=== PATIENT | female | born 1935 | race Caucasian/White ===

== ENCOUNTER 2020-10-05 06:21 | Inpatient (IN) | payer MEDICARE, MEDICAID, SELFPAY ==
[2020-10-05] VITALS (9 sets, daily range): BP systolic 93–137; BP diastolic 40–55; PULSE 60–104; RESP 15–20; TEMP 37.3–39.8; O2SAT 95–99; BMI 28.3
--- NOTE | ~2020-10-05 | CT_ITS ---
EXAMINATION: CT CHEST WITHOUT CONTRAST CLINICAL INFORMATION: SOB. Covid positive. COMPARISON: Chest 10/05/2020 TECHNIQUE: Multidetector volumetric CT imaging of the chest was done. Axial MIP volume rendering provided. Sagittal and coronal reformatted images were obtained. This CT examination was performed using dose optimization techniques as appropriate, variously including the following: *Automated exposure control *Adjustment of mA and/or kV according to patient size (this includes techniques or standardized protocols for targeted exams where dose is matched to indication/reason for exam; i.e. extremities or head) *Use of iterative reconstruction technique DLP: 232 mGy-cm FINDINGS: AWARD MACHINE OPERATOR: Unremarkable. LUNGS: The lungs are well expanded with patchy ill-defined opacity in the right middle lobe anterior segment and right lower lobe adjacent to the major fissure, axial image 26/4; a 5 mm nodule left lower lobe adjacent to the major fissure axial image 23/4; a 5 mm pleural-based nodule right upper lobe, axial image 12/4, and a pleural-based triangular nodule 9 mm, axial image 12/4. There is bilateral apical atelectasis or scarring. MEDIASTINUM: The thyroid lobes are symmetrical and normal. The central trachea and the bronchi are widely patent. There are numerous abnormal size para-aortic and precarinal pretracheal lymph nodes. The largest right pretracheal lymph node measures 1.9 x 1.2 cm on axial image 11/3. PLEURA: There is no pleural effusion. No pleural mass or thickening. AXILLA: There are small shotty lymph nodes in the axilla. The chest wall is unremarkable. UPPER ABDOMEN: Visualized liver, spleen, pancreas and bilateral adrenal glands are unremarkable. OSSEOUS STRUCTURES: There is moderate ventral spondylosis throughout the dorsal spine. There are median sternotomy sutures from previous intervention. CT/CT chest wo con IMPRESSION: Patchy ill-defined opacity, right middle lobe and left lower lobe, question infiltrate. Bilateral upper lobe platelike atelectasis or scarring There are scattered pulmonary nodules with the largest nodule measuring 5 mm lower lobe. Abnormal mediastinal adenopathy likely related to inflammatory or infectious etiology.
--- NOTE | ~2020-10-05 | XR_ITS ---
EXAMINATION: XR CHEST CLINICAL INFORMATION: Cough. COMPARISON: 01/01/2020 chest radiograph. TECHNIQUE: Frontal view of the chest was obtained. FINDINGS: The lungs are clear. The heart shows a prosthetic aortic valve. The mediastinal structures are unremarkable. Multilevel sternotomy wires are intact. XR/XR chest 1V IMPRESSION: No acute cardiopulmonary process.
--- NOTE | 2020-10-05 06:48 | ECG_ITS ---
Test Reason : WEAKNESS Blood Pressure : / mmHG Vent. Rate : 100 BPM Atrial Rate : 100 BPM P-R Int : 146 ms QRS Dur : 076 ms QT Int : 330 ms P-R-T Axes : 047 -25 117 degrees QTc Int : 425 ms Normal sinus rhythm Left ventricular hypertrophy with repolarization abnormality Abnormal ECG When compared with ECG of 01-JAN-2020 11:30, No significant change was found Referred By: Generic ED Physician Electronically Signed By:FATMATA FAULKNER
[2020-10-05 06:58] LABS: Glucose, Whole Blood 278 mg/dL (60-115)
[2020-10-05 06:59] LABS: MANUAL DIFF FLAG NO
--- NOTE | 2020-10-05 06:59 | PC.NURSE ---
Family contact [phone] for further information regarding history and CC/
--- NOTE | 2020-10-05 07:08 | ED.FEVER ---
HPI - Fever General Chief Complaint: Fever Stated Complaint: FEVER Time Seen by Provider: 10/05/20 06:54 Source: family History of Present Illness HPI Narrative: Patient is the 84-year-old female with a history of diabetes who presents today with having decreased mental status positive fever. No coughing or congestion. No diaphoresis. Patient from home. She is unable to provide the toe history. Family claims patient baseline awake alert oriented good now getting more lethargic developing a fever. Related Data Allergies Allergy/AdvReac Type Severity Reaction Status Date / Time metformin [METFORMIN] Allergy Intermediate DIARRHEA Unverified 05/17/20 18:46 Review of Systems Review of Systems: Unable to obtain review systems secondary to patient's condition Yes Unobtainable due to mental condition PMF Past Medical History Attestation statement: The following information was validated with the patient. Source: old records reviewed Medical History Diabetes Heart problem Hypertension Social History Social History Alcohol intake: unknown Smoking Status: Unknown if ever smoked Use of substances other than those prescribed or required for medical reasons: Unknown Advance Directives: No Physical Exam Vital Signs: Vital Signs: Last Vital Signs Temp 103.7 F H 10/05/20 06:36 Pulse 86 10/05/20 09:01 Resp 16 10/05/20 09:01 BP 112/52 L 10/05/20 09:01 Pulse Ox 98 10/05/20 09:01 Body Mass Index 28.3 Appearance: Alert. Oriented to self. No acute distress. Eyes: Pupils equal, round and reactive to light. ENT: Pharynx normal. Neck: Normal inspection. Neck supple. No lymph nodes noted. No crepitus CVS: Normal heart rate and rhythm. Pulses normal. Normal S1 and S2 Respiratory: No respiratory distress. Breath sounds normal. No Wheezing. No rales Abdomen: Soft and nontender. No rigidity. No distention. good BS x4 Skin: Skin warm and dry. Normal skin color. Normal skin turgor. Extremities: No lower extremity edema. Neurovascular intact to all extremities. No Lacerations. No Rash Neuro: Oriented to self. No motor deficit. No sensory deficit. Moving all extermities. No slurred speech MDM - Fever MDM Narrative Medical decision making narrative: Patient's urine was grossly negative for any acute evidence of infection. White count was 18. BUN and creatinine elevated suggestive of dehydration. Given IV fluids. Patient's lactate elevated at 2.5. Likely from dehydration. Patient coronavirus test was also positive. Likely the source of patient's fever. Will admit patient for further hydration. Cultures were obtained antibiotic was given initially as patient had an elevated lactate. Chest x-ray is negative for any acute infiltrate. Patient to be admitted for further evaluation. IV fluids given. Patient to be admitted. Lab Data Attestation: I reviewed the patient's lab results. Result diagrams: 10/05/20 06:50 10/05/20 06:50 Labs: Lab Results 10/05/20 10/05/20 10/05/20 Range/Units 06:50 06:50 06:50 WBC 18.1 H (4.8-10.8) X10*3/uL RBC 4.33 (4.20-5.50) X10*6/uL Hgb 12.2 (12.0-16.0) g/dl Hct 35.8 L (37-47) % MCV 82.7 (80-98) fL MCH 28.2 (27.0-33.0) pg MCHC 34.1 (31.0-35.0) g/dl RDW 13.5 (11.0-16.0) % Plt Count 163 (160-400) X10*3/uL MPV 11.6 (9.4-12.3) fL Immature Gran % (Auto) 1.3 H (0.0-0.4) % Neut % (Auto) 84.8 H (45-73) % Lymph % (Auto) 6.6 L (20-40) % [place] % (Auto) 6.9 (2-11) % Eos % (Auto) 0.1 (0-4) % Baso % (Auto) 0.3 (0-2) % Lymph # (Auto) 1.2 (1.2-4.9) X10*3/uL [place] # (Auto) 1.3 H (0.1-1.2) X10*3/uL Eos # (Auto) 0.0 (0.0-0.4) X10*3/uL Baso # (Auto) 0.1 (0.0-0.2) X10*3/uL Abs Immat Gran (auto) 0.23 H (0.00-0.03) X10*3/uL Absolute Neuts (auto) 15.4 H (2.0-8.3) X10*3/uL Absolute Nucleated RBC 0.000 (0.0-0.012) X10*3/uL Nucleated RBC % (auto) 0.0 (0.0-0.2) /100WBC Hold Blue Top SEE NOTE Sodium (135-145) mmol/L Potassium (3.3-5.1) mmol/L Chloride (96-108) mmol/L Carbon Dioxide (22-29) mmol/L Anion Gap (12-20) BUN (9-16) mg/dL Creatinine (0.5-1.4) mg/dL Estim Creat Clear Calc Estimated GFR POC Glucose (60-115) mg/dL Random Glucose (60-115) mg/dL Lactic Acid 2.5 H* (0.5-2.0) mmol/L Calcium (8.4-10.2) mg/dL Urine Color Urine Appearance Urine pH (5.0-8.0) Ur Specific [place] (1.005-1.025) Urine Protein (NEG-TRACE) MG/DL Urine Glucose (UA) (NEG) MG/DL Urine Ketones (NEG) MG/DL Urine Blood (NEG) Urine Nitrite (NEG) Ur Leukocyte Esterase (NEG) Urine RBC (0) /HPF Urine WBC (0-4) /HPF Ur Squamous Epith Cells /LPF Uric Acid Crystals /LPF Urine Bacteria /LPF Urine Yeast /HPF Urine Opiates Screen (Not Detect) Ur Barbiturates Screen (Not Detect) Ur Phencyclidine Scrn (Not Detect) Ur Amphetamines Screen (Not Detect) U Benzodiazepines Scrn (Not Detect) Urine Cocaine Screen (Not Detect) U Marijuana (THC) Screen (Not Detect) Coronavirus (PCR) (Negative) Influenza Type A (PCR) (Negative) Influenza Type B (PCR) (Negative) RSV RNA Qual (PCR) (Negative) 10/05/20 10/05/20 10/05/20 Range/Units 06:50 06:53 07:08 WBC (4.8-10.8) X10*3/uL RBC (4.20-5.50) X10*6/uL Hgb (12.0-16.0) g/dl Hct (37-47) % MCV (80-98) fL MCH (27.0-33.0) pg MCHC (31.0-35.0) g/dl RDW (11.0-16.0) % Plt Count (160-400) X10*3/uL MPV (9.4-12.3) fL Immature Gran % (Auto) (0.0-0.4) % Neut % (Auto) (45-73) % Lymph % (Auto) (20-40) % [place] % (Auto) (2-11) % Eos % (Auto) (0-4) % Baso % (Auto) (0-2) % Lymph # (Auto) (1.2-4.9) X10*3/uL [place] # (Auto) (0.1-1.2) X10*3/uL Eos # (Auto) (0.0-0.4) X10*3/uL Baso # (Auto) (0.0-0.2) X10*3/uL Abs Immat Gran (auto) (0.00-0.03) X10*3/uL Absolute Neuts (auto) (2.0-8.3) X10*3/uL Absolute Nucleated RBC (0.0-0.012) X10*3/uL Nucleated RBC % (auto) (0.0-0.2) /100WBC Hold Blue Top Sodium 135 (135-145) mmol/L Potassium 4.2 (3.3-5.1) mmol/L Chloride 96 (96-108) mmol/L Carbon Dioxide 28 (22-29) mmol/L Anion Gap 15 (12-20) BUN 29 H (9-16) mg/dL Creatinine 1.75 H (0.5-1.4) mg/dL Estim Creat Clear Calc 20.1 Estimated GFR 28 POC Glucose 278 H (60-115) mg/dL Random Glucose 326 H (60-115) mg/dL Lactic Acid (0.5-2.0) mmol/L Calcium 9.3 (8.4-10.2) mg/dL Urine Color Urine Appearance Urine pH (5.0-8.0) Ur Specific [place] (1.005-1.025) Urine Protein (NEG-TRACE) MG/DL Urine Glucose (UA) (NEG) MG/DL Urine Ketones (NEG) MG/DL Urine Blood (NEG) Urine Nitrite (NEG) Ur Leukocyte Esterase (NEG) Urine RBC (0) /HPF Urine WBC (0-4) /HPF Ur Squamous Epith Cells /LPF Uric Acid Crystals /LPF Urine Bacteria /LPF Urine Yeast /HPF Urine Opiates Screen (Not Detect) Ur Barbiturates Screen (Not Detect) Ur Phencyclidine Scrn (Not Detect) Ur Amphetamines Screen (Not Detect) U Benzodiazepines Scrn (Not Detect) Urine Cocaine Screen (Not Detect) U Marijuana (THC) Screen (Not Detect) Coronavirus (PCR) POSITIVE A (Negative) Influenza Type A (PCR) NEGATIVE (Negative) Influenza Type B (PCR) NEGATIVE (Negative) RSV RNA Qual (PCR) NEGATIVE (Negative) 10/05/20 10/05/20 Range/Units 07:40 07:40 WBC (4.8-10.8) X10*3/uL RBC (4.20-5.50) X10*6/uL Hgb (12.0-16.0) g/dl Hct (37-47) % MCV (80-98) fL MCH (27.0-33.0) pg MCHC (31.0-35.0) g/dl RDW (11.0-16.0) % Plt Count (160-400) X10*3/uL MPV (9.4-12.3) fL Immature Gran % (Auto) (0.0-0.4) % Neut % (Auto) (45-73) % Lymph % (Auto) (20-40) % [place] % (Auto) (2-11) % Eos % (Auto) (0-4) % Baso % (Auto) (0-2) % Lymph # (Auto) (1.2-4.9) X10*3/uL [place] # (Auto) (0.1-1.2) X10*3/uL Eos # (Auto) (0.0-0.4) X10*3/uL Baso # (Auto) (0.0-0.2) X10*3/uL Abs Immat Gran (auto) (0.00-0.03) X10*3/uL Absolute Neuts (auto) (2.0-8.3) X10*3/uL Absolute Nucleated RBC (0.0-0.012) X10*3/uL Nucleated RBC % (auto) (0.0-0.2) /100WBC Hold Blue Top Sodium (135-145) mmol/L Potassium (3.3-5.1) mmol/L Chloride (96-108) mmol/L Carbon Dioxide (22-29) mmol/L Anion Gap (12-20) BUN (9-16) mg/dL Creatinine (0.5-1.4) mg/dL Estim Creat Clear Calc Estimated GFR POC Glucose (60-115) mg/dL Random Glucose (60-115) mg/dL Lactic Acid (0.5-2.0) mmol/L Calcium (8.4-10.2) mg/dL Urine Color STRAW Urine Appearance CLEAR Urine pH 6.0 (5.0-8.0) Ur Specific [place] 1.015 (1.005-1.025) Urine Protein 1+ H (NEG-TRACE) MG/DL Urine Glucose (UA) >=1000 H (NEG) MG/DL Urine Ketones NEG (NEG) MG/DL Urine Blood 1+ H (NEG) Urine Nitrite NEG (NEG) Ur Leukocyte Esterase NEG (NEG) Urine RBC 0-2 (0) /HPF Urine WBC 1-4 (0-4) /HPF Ur Squamous Epith Cells TRACE /LPF Uric Acid Crystals TRACE /LPF Urine Bacteria 3+ /LPF Urine Yeast TRACE /HPF Urine Opiates Screen Not Detected (Not Detect) Ur Barbiturates Screen Not Detected (Not Detect) Ur Phencyclidine Scrn Not Detected (Not Detect) Ur Amphetamines Screen Not Detected (Not Detect) U Benzodiazepines Scrn Not Detected (Not Detect) Urine Cocaine Screen Not Detected (Not Detect) U Marijuana (THC) Screen Not Detected (Not Detect) Coronavirus (PCR) (Negative) Influenza Type A (PCR) (Negative) Influenza Type B (PCR) (Negative) RSV RNA Qual (PCR) (Negative) Critical Care Time Critical Care Time Critical Care Time: Yes Total Critical Care Time: 40 Attestation: I have personally provided 40 minutes of critical care time exclusive of time spent on separately billable procedures. Time includes review of lab data, radiology results, discussion with consultants, and monitoring for potential decompensation. Interventions were performed as documented above Discharge Plan Discharge Clinical Impression: COVID-19
--- NOTE | 2020-10-05 07:14 | PC.NURSE ---
report to BJ Vega
[2020-10-05 07:15] LABS: Basophils Absolute Auto 0.1 X10*3/uL (0.0-0.2); Basophils Percent Auto 0.3 % (0-2); Eosinophils Percent Auto 0.1 % (0-4); Hematocrit 35.8 % (37-47); Hemoglobin 12.2 g/dl (12.0-16.0); Imm Gran Abs Auto 0.23 X10*3/uL (0.00-0.03); Imm Gran Pct Auto 1.3 % (0.0-0.4); Lymphocytes Absolute Auto 1.2 X10*3/uL (1.2-4.9); Lymphocytes Percent Auto 6.6 % (20-40); Mean Corpuscular HGB Conc 34.1 g/dl (31.0-35.0); Mean Corpuscular Hemoglobin 28.2 pg (27.0-33.0); Mean Corpuscular Volume 82.7 fL (80-98); Mean Platelet Volume 11.6 fL (9.4-12.3); Monocytes Absolute Auto 1.3 X10*3/uL (0.1-1.2); Monocytes Percent Auto 6.9 % (2-11); Neutrophils Absolute Auto 15.4 X10*3/uL (2.0-8.3); Neutrophils Percent Auto 84.8 % (45-73); Platelet Count 163 X10*3/uL (160-400); Red Blood Count 4.33 X10*6/uL (4.20-5.50); Red Cell Distribution Width 13.5 % (11.0-16.0); White Blood Count 18.1 X10*3/uL (4.8-10.8)
[2020-10-05 07:29] LABS: Lactic Acid 2.5 mmol/L (0.5-2.0)
[2020-10-05 07:35] LABS: Anion Gap 15 (12-20); Blood Urea Nitrogen 29 mg/dL (9-16); Calcium 9.3 mg/dL (8.4-10.2); Carbon Dioxide 28 mmol/L (22-29); Chloride 96 mmol/L (96-108); Creatinine Clr Calc Pharmacy 20.1; Estimated Glomerular Filt Rate 28; Glucose Random 326 mg/dL (60-115); Potassium 4.2 mmol/L (3.3-5.1); Sodium 135 mmol/L (135-145)
[2020-10-05] MEDS: 0.9 % Sodium Chloride 1,000 ML 999 ML IV ×2 (07:37→09:00)
[2020-10-05] MEDS: cefTRIAXone sodium 1 GM in 0.9 % Sodium Chloride 50 ML IV (07:40)
[2020-10-05] MEDS: Acetaminophen Supp 650 MG SUPP.RECT PR (07:44)
[2020-10-05 07:52] LABS: Glucose Urine UA >=1000 MG/DL (NEG); Leukocyte Esterase Urine NEG (NEG); Nitrite Urine NEG (NEG); Specific Gravity - Urine 1.015 (1.005-1.025); Urine Blood 1+ (NEG); Urine Ketones NEG (NEG); Urine Protein 1+ MG/DL (NEG-TRACE)
[2020-10-05 07:54] LABS: Appearance Urine CLEAR; Color Urine STRAW
[2020-10-05 08:00] LABS: Influenza A PCR NEGATIVE (Negative); Influenza B PCR NEGATIVE (Negative); Resp Syncy Virus RNA Qual PCR NEGATIVE (Negative); SARS COV2 PCR INHOUSE POSITIVE (Negative)
[2020-10-05 08:08] LABS: Bacteria Urine 3+ /LPF; RBC Urine 0-2 /HPF (0); Squamous Epithelial Cell Urine TRACE /LPF; Uric Acid Crystals Urine TRACE /LPF
[2020-10-05 08:11] LABS: Amphetamine Screen Urine Not Detected (Not Detect); Barbiturates, Urine Not Detected (Not Detect); Benzodiazepines Screen Urine Not Detected (Not Detect); Cannabinoid Screen Urine Not Detected (Not Detect); Cocaine Screen Urine Not Detected (Not Detect); Opiate Screen Urine Not Detected (Not Detect); Phencyclidine Screen Urine Not Detected (Not Detect)
[2020-10-05 08:58] LABS: Reflex Lactate? Lactic Acid Added
[2020-10-05 09:58] LABS: ~Lactic Acid-LAB USE ONLY 1.5 mmol/L (0.5-2.0)
--- NOTE | 2020-10-05 11:18 | PC.NURSE ---
pt has been sleeping, she does not answer questions when awake and appears very weak. Oxygen saturation on room air has been 96-98% with no noted shortness of breath. Will continue to monitor
[2020-10-05 12:09] LABS: Glucose, Whole Blood 196 mg/dL (60-115)
--- NOTE | 2020-10-05 12:51 | P.HPHOSP_ITS ---
History of Present Illness Date of Service: 10/05/20 Chief Complaint: Weakness 84 year old swedish speaking women presenting from home with fever and increased confusion. Covid positive, CXR negative for consolidation. She's very vague about why she was in the hospital. Her daughter, Kinsey Mcgee ([phone]) st ated that last night the patient felt warm and she was unable to get out of bed. Her daughter checked her blood sugar and it was 375 and her temperature was 104.0. In the ED, WBC 18.1, creatinine 1.75, ast 34, alt 41, covid pcr positive. She was noted to be mildly hypotensive at 93/40 however did improve with IV fluids. She was also given a dose of Rocephin and Tylenol. She will be admitted with viral sepsis secondary to Covid. Review of Systems Review of Systems: Denies any recent fever chills or decrease in appetite respiratory denies any shortness of breath coverage production cardiovascular is adjustment of any PND or edema gastrointestinal denies any dysphagia abdominal pain nausea vomiting or diarrhea genitourinary denies any dysuria frequency or hematuria musculoskeletal denies any joint pain or swelling neuropsych denies any weakness or seizures all other systems reviewed are negative [facility] Medical History Diabetes Heart problem Hypertension Social History Alcohol intake: unknown Smoking Status: Unknown if ever smoked Use of substances other than those prescribed or required for medical reasons: Unknown Advance Directives: No Meds Allergies Allergy/AdvReac Type Severity Reaction Status Date / Time metformin [METFORMIN] Allergy Intermediate DIARRHEA Unverified 05/17/20 18:46 Home Medications Medication Instructions Recorded Confirmed Type albuterol sulfate [ProAir HFA] 2 puff INHALATION Q4H PRN 10/05/20 10/05/20 Histo ry amlodipine 1 tab PO DAILY 10/05/20 10/05/20 History aspirin 81 mg PO DAILY 10/05/20 10/05/20 History atorvastatin 1 tab PO DAILY 10/05/20 10/05/20 History dulaglutide [Trulicity] 0.75 mg SUBCUT MO@1000 10/05/20 10/05/20 History famotidine 1 tab PO BID 10/05/20 10/05/20 History furosemide 1 tab PO DAILY 10/05/20 10/05/20 History gabapentin 1 tab PO BEDTIME 10/05/20 10/05/20 History insulin degludec [Tresiba 38 unit SUBCUT BEDTIME 10/05/20 10/05/20 History FlexTouch U-100] losartan 1 tab PO DAILY 10/05/20 10/05/20 History metoprolol succinate 1 tab PO DAILY 10/05/20 10/05/20 History mirabegron [Myrbetriq] 1 tab PO DAILY 10/05/20 10/05/20 History prednisone 5 mg PO DAILY 10/05/20 10/05/20 History trazodone 0.5 tab PO BEDTIME 10/05/20 10/05/20 History Physical Exam Vital Signs and Narrative: Vital Signs: Last Vital Signs Temp 99.7 F 10/05/20 09:47 Pulse 72 10/05/20 10:35 Resp 15 10/05/20 10:35 BP 93/40 L 10/05/20 10:35 Pulse Ox 98 10/05/20 10:35 Body Mass Index 28.3 Appearing in no acute distress head is normocephalic atraumatic eyes pupils are PERRLA sclera is anicteric mouth throat mucous membranes are intact and moist neck is supple no lymphadenopathy, no JVD noted lung sounds are clear to auscultation heart regular rate rhythm, clear S1, S2 positive bowel sounds, abdomen is soft, nontender neuro patient is alert x3, no focal deficits Results Labs CBC and Chem 7: 10/05/20 06:50 10/05/20 06:50 Labs: Laboratory Results - last 24 hr 10/05/20 10/05/20 10/05/20 06:50 06:50 06:50 MCV 82.7 MCH 28.2 MCHC 34.1 RDW 13.5 Plt Count 163 MPV 11.6 Immature Gran % (Auto) 1.3 H Neut % (Auto) 84.8 H Lymph % (Auto) 6.6 L [place] % (Auto) 6.9 Eos % (Auto) 0.1 Baso % (Auto) 0.3 Lymph # (Auto) 1.2 [place] # (Auto) 1.3 H Eos # (Auto) 0.0 Baso # (Auto) 0.1 Abs Immat Gran (auto) 0.23 H Absolute Neuts (auto) 15.4 H Absolute Nucleated RBC 0.000 Nucleated RBC % (auto) 0.0 Hold Blue Top SEE NOTE Anion Gap Estim Creat Clear Calc Estimated GFR POC Glucose Random Glucose Lactic Acid 2.5 H* Lactic Acid Fup @ 2Hr Calcium Urine Color Urine Appearance Urine pH Ur Specific [place] Urine Protein Urine Glucose (UA) Urine Ketones Urine Blood Urine Nitrite Ur Leukocyte Esterase Urine RBC Urine WBC Ur Squamous Epith Cells Uric Acid Crystals Urine Bacteria Urine Yeast Urine Opiates Screen Ur Barbiturates Screen Ur Phencyclidine Scrn Ur Amphetamines Screen U Benzodiazepines Scrn Urine Cocaine Screen U Marijuana (THC) Screen Coronavirus (PCR) Influenza Type A (PCR) Influenza Type B (PCR) RSV RNA Qual (PCR) 10/05/20 10/05/20 10/05/20 06:50 06:53 07:08 MCV MCH MCHC RDW Plt Count MPV Immature Gran % (Auto) Neut % (Auto) Lymph % (Auto) [place] % (Auto) Eos % (Auto) Baso % (Auto) Lymph # (Auto) [place] # (Auto) Eos # (Auto) Baso # (Auto) Abs Immat Gran (auto) Absolute Neuts (auto) Absolute Nucleated RBC Nucleated RBC % (auto) Hold Blue Top Anion Gap 15 Estim Creat Clear Calc 20.1 Estimated GFR 28 POC Glucose 278 H Random Glucose 326 H Lactic Acid Lactic Acid Fup @ 2Hr Calcium 9.3 Urine Color Urine Appearance Urine pH Ur Specific [place] Urine Protein Urine Glucose (UA) Urine Ketones Urine Blood Urine Nitrite Ur Leukocyte Esterase Urine RBC Urine WBC Ur Squamous Epith Cells Uric Acid Crystals Urine Bacteria Urine Yeast Urine Opiates Screen Ur Barbiturates Screen Ur Phencyclidine Scrn Ur Amphetamines Screen U Benzodiazepines Scrn Urine Cocaine Screen U Marijuana (THC) Screen Coronavirus (PCR) POSITIVE A Influenza Type A (PCR) NEGATIVE Influenza Type B (PCR) NEGATIVE RSV RNA Qual (PCR) NEGATIVE 10/05/20 10/05/20 10/05/20 07:40 07:40 09:36 MCV MCH MCHC RDW Plt Count MPV Immature Gran % (Auto) Neut % (Auto) Lymph % (Auto) [place] % (Auto) Eos % (Auto) Baso % (Auto) Lymph # (Auto) [place] # (Auto) Eos # (Auto) Baso # (Auto) Abs Immat Gran (auto) Absolute Neuts (auto) Absolute Nucleated RBC Nucleated RBC % (auto) Hold Blue Top Anion Gap Estim Creat Clear Calc Estimated GFR POC Glucose Random Glucose Lactic Acid Lactic Acid Fup @ 2Hr 1.5 Calcium Urine Color STRAW Urine Appearance CLEAR Urine pH 6.0 Ur Specific [place] 1.015 Urine Protein 1+ H Urine Glucose (UA) >=1000 H Urine Ketones NEG Urine Blood 1+ H Urine Nitrite NEG Ur Leukocyte Esterase NEG Urine RBC 0-2 Urine WBC 1-4 Ur Squamous Epith Cells TRACE Uric Acid Crystals TRACE Urine Bacteria 3+ Urine Yeast TRACE Urine Opiates Screen Not Detected Ur Barbiturates Screen Not Detected Ur Phencyclidine Scrn Not Detected Ur Amphetamines Screen Not Detected U Benzodiazepines Scrn Not Detected Urine Cocaine Screen Not Detected U Marijuana (THC) Screen Not Detected Coronavirus (PCR) Influenza Type A (PCR) Influenza Type B (PCR) RSV RNA Qual (PCR) 10/05/20 12:03 MCV MCH MCHC RDW Plt Count MPV Immature Gran % (Auto) Neut % (Auto) Lymph % (Auto) [place] % (Auto) Eos % (Auto) Baso % (Auto) Lymph # (Auto) [place] # (Auto) Eos # (Auto) Baso # (Auto) Abs Immat Gran (auto) Absolute Neuts (auto) Absolute Nucleated RBC Nucleated RBC % (auto) Hold Blue Top Anion Gap Estim Creat Clear Calc Estimated GFR POC Glucose 196 H Random Glucose Lactic Acid Lactic Acid Fup @ 2Hr Calcium Urine Color Urine Appearance Urine pH Ur Specific [place] Urine Protein Urine Glucose (UA) Urine Ketones Urine Blood Urine Nitrite Ur Leukocyte Esterase Urine RBC Urine WBC Ur Squamous Epith Cells Uric Acid Crystals Urine Bacteria Urine Yeast Urine Opiates Screen Ur Barbiturates Screen Ur Phencyclidine Scrn Ur Amphetamines Screen U Benzodiazepines Scrn Urine Cocaine Screen U Marijuana (THC) Screen Coronavirus (PCR) Influenza Type A (PCR) Influenza Type B (PCR) RSV RNA Qual (PCR) Imaging Radiologist's Impressions: Impressions Chest X-Ray 10/05/20 08:31 IMPRESSION: No acute cardiopulmonary process. Assessment and Plan (1) COVID-19: Status: Acute 84 year old man admitted with viral sepsis secondary to Covid 19. No hypoxia or consolidations noted. Viral sepsis due to covid 19. Fever, tachycardia, lactic acidosis. Covid-19 positive. ioslation, Will hold off on steroids as patient has not been hypoxic. MARIELA. Likely from dehydration. IV fluids. If no improvements seen consider nephrology consultation. Encephalopathy. Likely from sepsis secondary to covid. Transaminitis. Likely viral related from Covid and dehydration. IV fluids. Hypotension. Hold antihypertensives. Likely from dehydration. DVT prophylaxis with Heparin Discussed with Dr. Hall Full code
[2020-10-05 14:50] LABS: Anion Gap 11 (12-20); Blood Urea Nitrogen 29 mg/dL (9-16); Calcium 7.5 mg/dL (8.4-10.2); Carbon Dioxide 25 mmol/L (22-29); Chloride 105 mmol/L (96-108); Creatinine Clr Calc Pharmacy 24.4; Estimated Glomerular Filt Rate 35; Glucose Random 186 mg/dL (60-115); Potassium 3.7 mmol/L (3.3-5.1); Sodium 137 mmol/L (135-145)
[2020-10-05] MEDS: 0.9 % Sodium Chloride 1,000 ML 100 ML IVCONT (14:59)
[2020-10-05 15:06] LABS: Lactate Dehydrogenase 199 U/L (122-220)
[2020-10-05 15:27] LABS: Ferritin 94 ng/mL (10-250)
[2020-10-05 15:31] LABS: Procalcitonin 3.13 ng/mL
[2020-10-05 16:41] LABS: Glucose, Whole Blood 146 mg/dL (60-115)
[2020-10-05] MEDS: Heparin Sodium,Porcine 5,000 UNIT/ML VIAL 5000 UNIT SUBCUT (18:25)
--- NOTE | 2020-10-05 18:35 | PM.EVENT ---
Event Note Date of Service: 10/06/20 Event Note: Patient came for generalized weakness, poor oral intake Found to have COVID positive also Found to have a KI and probable viral sepsis was received IV fluid and blood pressure and encephalopathy white somewhat better Physical exam: Cvs: rrr, [id number] , no murmur res: clear to auscultation ,no rhonchii or wheezing abd: no rebound or guarding ,nt, bs present. ext pulses present , no cyanosis neuro: axo2 , nonfocal. Assessment and plan coordinated in H&P note
[2020-10-05] MEDS: Famotidine 20 MG TABLET PO (20:53)
[2020-10-05] MEDS: Insulin Glargine,Hum.rec.anlog 100 UNIT/ML 10 ML VIAL 25 UNIT SUBCUT (20:53)
[2020-10-05] MEDS: Gabapentin 600 MG TABLET PO (20:53)
[2020-10-05] MEDS: Insulin Lispro 100 UNIT/ML 3 ML VIAL SUBCUT (20:53)
[2020-10-05] MEDS: traZODone HCL 25 MG HALFTAB PO (20:53)
--- NOTE | 2020-10-05 20:56 | PC.NURSE ---
patient medicated per order
[2020-10-05 21:07] LABS: Glucose, Whole Blood 230 mg/dL (60-115)
[2020-10-06] VITALS: BP 120/50; PULSE 65; RESP 17; O2SAT 96
[2020-10-06] MEDS: 0.9 % Sodium Chloride 1,000 ML 100 ML IVCONT ×3 (00:44→21:42)
[2020-10-06 00:45] LABS: Glucose, Whole Blood 114 mg/dL (60-115)
[2020-10-06 06:00] VITALS: BP 116/47; PULSE 66; RESP 15; O2SAT 96
[2020-10-06] MEDS: Heparin Sodium,Porcine 5,000 UNIT/ML VIAL 5000 UNIT SUBCUT (06:03)
[2020-10-06 06:51] LABS: Basophils Percent Auto 0.3 % (0-2); Hemoglobin 10.3 g/dl (12.0-16.0); Imm Gran Abs Auto 0.04 X10*3/uL (0.00-0.03); Imm Gran Pct Auto 0.4 % (0.0-0.4); MANUAL DIFF FLAG SCAN; PLT CLUMP 1; SCAN SMEAR FLAG 1
[2020-10-06 06:53] LABS: Eosinophils Absolute Auto 0.1 X10*3/uL (0.0-0.4); Hematocrit 29.6 % (37-47); Lymphocytes Absolute Auto 1.4 X10*3/uL (1.2-4.9); Lymphocytes Percent Auto 15.7 % (20-40); Mean Corpuscular HGB Conc 34.8 g/dl (31.0-35.0); Mean Corpuscular Hemoglobin 28.9 pg (27.0-33.0); Mean Corpuscular Volume 83.1 fL (80-98); Monocytes Absolute Auto 0.7 X10*3/uL (0.1-1.2); Monocytes Percent Auto 7.9 % (2-11); Neutrophils Absolute Auto 6.9 X10*3/uL (2.0-8.3); Neutrophils Percent Auto 74.7 % (45-73); Red Blood Count 3.56 X10*6/uL (4.20-5.50); Red Cell Distribution Width 13.9 % (11.0-16.0); White Blood Count 9.2 X10*3/uL (4.8-10.8)
--- NOTE | 2020-10-06 07:07 | PC.NURSE ---
report taken from belkis nascimento pt lying in stretcher, appears to be sleeping at this time. admitted for covid related pna. vss. shiratm.
[2020-10-06 07:29] LABS: Alanine Aminotransferase 41 U/L (0-31); Albumin Level 2.9 g/dL (3.5-5.0); Alkaline Phosphatase 195 U/L (39-117); Anion Gap 12 (12-20); Aspartate Amino Transferase 47 U/L (5-31); Bilirubin Direct 0.3 mg/dL (0.0-0.5); Bilirubin Total 0.4 mg/dL (0.0-1.0); Blood Urea Nitrogen 25 mg/dL (9-16); Calcium 7.9 mg/dL (8.4-10.2); Carbon Dioxide 21 mmol/L (22-29); Chloride 111 mmol/L (96-108); Creatinine Clr Calc Pharmacy 34.8; Estimated Glomerular Filt Rate 52; Glucose Random 62 mg/dL (60-115); Potassium 3.5 mmol/L (3.3-5.1); Sodium 140 mmol/L (135-145); Total Protein 5.5 g/dL (6.5-8.0)
[2020-10-06 07:34] LABS: Glucose, Whole Blood 64 mg/dL (60-115)
--- NOTE | 2020-10-06 07:34 | PC.NURSE ---
poc glucose checked, 64. no insulin coverage given, pt sitting up at bedside, eating all of breakfast. tolerating po, alert and oriented.
[2020-10-06 07:40] LABS: Platelet Count 88 X10*3/uL (160-400); SLIDE REVIEW VERIFIED
[2020-10-06] MEDS: predniSONE 5 MG TABLET PO (08:48)
[2020-10-06] MEDS: Furosemide 20 MG TABLET PO (08:48)
[2020-10-06] MEDS: Atorvastatin Calcium 80 MG TABLET PO (08:48)
[2020-10-06] MEDS: Aspirin Enteric Coated 81 MG TABLET.DR PO (08:48)
[2020-10-06] MEDS: Famotidine 20 MG TABLET PO ×2 (08:49→21:43)
[2020-10-06 08:50] VITALS: BP 153/57
[2020-10-06] MEDS: Losartan Potassium 50 MG TABLET 100 MG PO (08:50)
[2020-10-06] MEDS: Mirabegron 25 MG TAB.ER.24H PO (08:50)
[2020-10-06] MEDS: Metoprolol Succinate ER 50 MG TAB.ER.24H PO (08:50)
--- NOTE | 2020-10-06 12:06 | PC.NURSE ---
pt ambulated to and from bathroom w steady gait.
[2020-10-06 12:28] LABS: Glucose, Whole Blood 160 mg/dL (60-115)
[2020-10-06] MEDS: Insulin Lispro 100 UNIT/ML 3 ML VIAL SUBCUT ×3 (12:44→21:43)
--- NOTE | 2020-10-06 14:29 | MHC.CM.PN ---
CM spoke with patient's dtr Kinsey [phone] by phone r/t patient is COVID+. Dtr reports that mom lives with her, amb with a cane and provides what assistance her mom needs ie: showers, dressing, meals and shopping. Patient does have a HCP and a copy is on file. Discussed discharge plan, home no services. Dtr will provide transport. CM will continue to follow patient for discharge needs.
--- NOTE | 2020-10-06 15:21 | P.PNIM_ITS ---
Subjective Subjective Date of Service: 10/06/20 Interval History: Virus sepsis, borderline blood pressure, MARIELA Review of Systems Says shortness of breath improving, has some cough Denies any chest pain or nausea vomiting or abdominal pain. Physical Exam Vital Signs: Vital Signs: Last Vital Signs Temp 99.3 F 10/05/20 21:30 Pulse 66 10/06/20 06:00 Resp 15 10/06/20 06:00 BP 153/57 H 10/06/20 08:50 Pulse Ox 96 10/06/20 06:00 Body Mass Index 28.3 Physical exam Cvs: [id number], [id number] , no murmur res: fair air entry,no rhonchii or wheezing abd: no rebound or guarding ,nt, bs present. ext pulses present , no cyanosis neuro: axo3 , nonfocal. Objective Data Current Medications Generic Name Dose Route Start Last Admin Trade Name Freq PRN Reason Stop Dose Admin Acetaminophen 650 mg 10/05/20 12:48 Acetaminophen 325 Mg Tablet PO Q6H PRN Pain, Mild (Pain Scale 1-3) Albuterol Sulfate 2 puff 10/05/20 14:37 Albuterol Sulfate 90 Mcg 8 Gm Inhaler INHALE Q4H PRN Respiratory Distress Aspirin 81 mg 10/06/20 09:00 10/06/20 08:48 Aspirin Enteric Coated 81 Mg Tablet. PO 81 mg DAILY JOSE DANIEL Administration Atorvastatin Calcium 80 mg 10/06/20 09:00 10/06/20 08:48 Atorvastatin Calcium 80 Mg Tablet PO 80 mg DAILY JOSE DANIEL Administration Famotidine 20 mg 10/05/20 21:00 10/06/20 08:49 Famotidine 20 Mg Tablet PO 20 mg BID JOSE DANIEL Administration Famotidine 20 mg 10/06/20 09:00 10/06/20 08:50 Famotidine 20 Mg Tablet PO Not Given DAILY JOSE DANIEL Furosemide 20 mg 10/06/20 09:00 10/06/20 08:48 Furosemide 20 Mg Tablet PO 20 mg DAILY JOSE DANIEL Administration Protocol Gabapentin 600 mg 10/05/20 21:00 10/05/20 20:53 Gabapentin 600 Mg Tablet PO 600 mg BEDTIME JOSE DANIEL Administration Heparin Sodium (Porcine) 5,000 unit 10/05/20 18:00 10/06/20 06:03 Heparin Sodium,Porcine 5,000 Unit/Ml Vial SUBCUT 5,000 unit Q12H JOSE DANIEL Administration Sodium Chloride 1,000 mls @ 100 mls/hr 10/05/20 14:00 10/06/20 10:14 Ns IVCONT 100 mls/hr .Q10H JOSE DANIEL Administration Insulin Glargine 25 unit 10/05/20 21:00 10/05/20 20:53 Insulin Glargine,Hum.Rec.Anlog 100 Unit/Ml 10 Ml Vial SUBCUT 25 unit BEDTIME JOSE DANIEL Administration Insulin Human Lispro 0 unit 10/05/20 16:30 10/06/20 12:44 Insulin Lispro 100 Unit/Ml 3 Ml Vial SUBCUT 2 unit QIDACHS [facility] Administration Protocol Losartan Potassium 100 mg 10/06/20 09:00 10/06/20 08:50 Losartan Potassium 50 Mg Tablet PO 100 mg DAILY [facility] Administration Protocol Metoprolol Succinate 50 mg 10/06/20 09:00 10/06/20 08:50 Metoprolol Succinate Er 50 Mg Tab.Er.24h PO 50 mg DAILY JOSE DANIEL Administration Protocol Mirabegron 25 mg 10/06/20 09:00 10/06/20 08:50 Mirabegron 25 Mg Tab.Er.24h PO 25 mg DAILY JOSE DANIEL Administration Ondansetron HCl 4 mg 10/05/20 12:48 Ondansetron Hcl 4 Mg/2 Ml Vial IVPUSH Q8H PRN Nausea and Vomiting Pharmacy Consult 1 each 10/05/20 13:50 Consult Rx Perform Med Rec MISCELLANE ONCE PRN Consult order Prednisone 5 mg 10/06/20 09:00 10/06/20 08:48 Prednisone 5 Mg Tablet PO 5 mg DAILY JOSE DANIEL Administration Sodium Chloride 3 ml 10/05/20 16:00 10/06/20 07:33 0.9 % Sodium Chloride Flush 3 Ml Syringe IVFLUSH Not Given QSHIFT [facility] Trazodone HCl 25 mg 10/05/20 21:00 10/05/20 20:53 Trazodone Hcl 25 Mg Halftab PO 25 mg BEDTIME JOSE DANIEL Administration Labs CBC & Chem 7: 10/07/20 08:08 10/07/20 08:08 Microbiology Microbiology Results: Microbiology 10/05/20 06:50 Blood - Venous Blood Culture - Preliminary No growth after 24 hours. 10/05/20 06:50 Blood - Venous Blood Culture - Preliminary No growth after 24 hours. Assessment and Plan (1) COVID-19: Status: Acute Assessment and Plan: 84 year old man admitted with viral sepsis secondary to Covid 19. No hypoxia or consolidations noted. 1.Viral sepsis due to covid 19. Covid-19 positive. fever, tachycardia, lactic acidosis seems to be imrpovng. Will hold off on steroids as patient has not been hypoxic. Id chris pendantonio 2.MARIELA. Likely from dehydration. ivf ,seems improving as wella s po intake 3.Encephalopathy. Likely from sepsis secondary to covid. 4.Transaminitis. Likely viral related from Covid and dehydration. IV fluids.will moniter lft's 5.Hypotension. Hold antihypertensives. Likely from dehydration.seems improving with hydration
[2020-10-06 17:26] LABS: Glucose, Whole Blood 227 mg/dL (60-115)
[2020-10-06 17:49] VITALS: BP 183/73; PULSE 82; RESP 16; TEMP 36.8; O2SAT 98
[2020-10-06 19:46] VITALS: BP 174/66; PULSE 70; RESP 15; TEMP 36.8; O2SAT 98
[2020-10-06 21:31] LABS: Glucose, Whole Blood 196 mg/dL (60-115)
[2020-10-06] MEDS: traZODone HCL 25 MG HALFTAB PO (21:42)
[2020-10-06] MEDS: Insulin Glargine,Hum.rec.anlog 100 UNIT/ML 10 ML VIAL 25 UNIT SUBCUT (21:43)
[2020-10-06] MEDS: Gabapentin 600 MG TABLET PO (21:43)
[2020-10-06 23:12] VITALS: BP 156/55; PULSE 64; RESP 13; TEMP 36.6; O2SAT 98
[2020-10-06] MEDS: 0.9 % Sodium Chloride Flush 3 ML SYRINGE IVFLUSH (23:39)
[2020-10-07 04:05] VITALS: BP 134/55; PULSE 65; RESP 14; TEMP 36.7; O2SAT 96
[2020-10-07 07:52] LABS: Glucose, Whole Blood 55 mg/dL (60-115)
[2020-10-07 08:00] VITALS: BP 172/64; PULSE 79; RESP 13; TEMP 36.5; O2SAT 98
[2020-10-07 08:06] LABS: Glucose, Whole Blood 72 mg/dL (60-115)
[2020-10-07] MEDS: 0.9 % Sodium Chloride Flush 3 ML SYRINGE IVFLUSH ×2 (08:33→16:53)
[2020-10-07] MEDS: predniSONE 5 MG TABLET PO (08:34)
[2020-10-07] MEDS: Atorvastatin Calcium 80 MG TABLET PO (08:34)
[2020-10-07] MEDS: Mirabegron 25 MG TAB.ER.24H PO (08:34)
[2020-10-07 08:35] VITALS: BP 172/64; PULSE 81
[2020-10-07] MEDS: Metoprolol Succinate ER 50 MG TAB.ER.24H PO (08:35)
[2020-10-07] MEDS: Famotidine 20 MG TABLET PO ×2 (08:35→21:21)
[2020-10-07] MEDS: Aspirin Enteric Coated 81 MG TABLET.DR PO (08:35)
[2020-10-07 08:36] LABS: Hematocrit 30.9 % (37-47); Hemoglobin 10.6 g/dl (12.0-16.0)
[2020-10-07 09:05] LABS: Anion Gap 14 (12-20); Blood Urea Nitrogen 17 mg/dL (9-16); Calcium 8.2 mg/dL (8.4-10.2); Carbon Dioxide 26 mmol/L (22-29); Chloride 109 mmol/L (96-108); Creatinine Clr Calc Pharmacy 36.2; Estimated Glomerular Filt Rate 55; Glucose Random 82 mg/dL (60-115); Potassium 3.8 mmol/L (3.3-5.1); Sodium 145 mmol/L (135-145)
[2020-10-07 10:22] LABS: Estimated Average Glucose 235 mg/dL; Hemoglobin A1c % 9.8 %
[2020-10-07 10:23] LABS: Alanine Aminotransferase 42 U/L (0-31); Albumin Level 3.1 g/dL (3.5-5.0); Alkaline Phosphatase 214 U/L (39-117); Aspartate Amino Transferase 50 U/L (5-31); Bilirubin Direct 0.3 mg/dL (0.0-0.5); Bilirubin Total 0.4 mg/dL (0.0-1.0); Total Protein 5.9 g/dL (6.5-8.0)
[2020-10-07 11:31] LABS: Glucose, Whole Blood 165 mg/dL (60-115)
[2020-10-07] MEDS: Insulin Lispro 100 UNIT/ML 3 ML VIAL SUBCUT ×3 (11:59→21:21)
[2020-10-07 12:00] VITALS: BP 146/56; PULSE 82; RESP 16; TEMP 36.6; O2SAT 97
--- NOTE | 2020-10-07 14:40 | HO.PM.IMPN ---
Subjective Subjective Date of Service: 10/19/20 Interval History: covid infection, mariela Review of Systems Metabolic encephalopathy seems improving, P.o. intake came to approving MARIELA is also improving Denies any chest pain or shortness of breath or abdominal pain or nausea vomiting or fever chills. Physical Exam Vital Signs: Vital Signs: Last Vital Signs Temp 97.8 F 10/07/20 12:00 Pulse 82 10/07/20 12:00 Resp 16 10/07/20 12:00 BP 146/56 H 10/07/20 12:00 Pulse Ox 97 10/07/20 12:00 Body Mass Index 28.3 Physical exam: Cvs: rrr, [id number] , no murmur res: clear to auscultation ,no rhonchii or wheezing abd: no rebound or guarding ,nt, bs present. ext pulses present , no cyanosis neuro: nonfocal. Objective Data Current Medications Generic Name Dose Route Start Last Admin Trade Name Freq PRN Reason Stop Dose Admin Acetaminophen 650 mg 10/05/20 12:48 Acetaminophen 325 Mg Tablet PO Q6H PRN Pain, Mild (Pain Scale 1-3) Albuterol Sulfate 2 puff 10/05/20 14:37 Albuterol Sulfate 90 Mcg 8 Gm Inhaler INHALE Q4H PRN Respiratory Distress Aspirin 81 mg 10/06/20 09:00 10/07/20 08:35 Aspirin Enteric Coated 81 Mg Tablet. PO 81 mg DAILY JOSE DANIEL Administration Atorvastatin Calcium 80 mg 10/06/20 09:00 10/07/20 08:34 Atorvastatin Calcium 80 Mg Tablet PO 80 mg DAILY JOSE DANIEL Administration Famotidine 20 mg 10/05/20 21:00 10/07/20 08:35 Famotidine 20 Mg Tablet PO 20 mg BID JOSE DANIEL Administration Furosemide 20 mg 10/06/20 09:00 10/06/20 08:48 Furosemide 20 Mg Tablet PO 20 mg DAILY JOSE DANIEL Administration Protocol Gabapentin 600 mg 10/05/20 21:00 10/06/20 21:43 Gabapentin 600 Mg Tablet PO 600 mg BEDTIME JOSE DANIEL Administration Insulin Glargine 25 unit 10/05/20 21:00 10/06/20 21:43 Insulin Glargine,Hum.Rec.Anlog 100 Unit/Ml 10 Ml Vial SUBCUT 25 unit BEDTIME JOSE DANIEL Administration Insulin Human Lispro 0 unit 10/05/20 16:30 10/07/20 11:59 Insulin Lispro 100 Unit/Ml 3 Ml Vial SUBCUT 2 unit QIDACHS JOSE DANIEL Administration Protocol Metoprolol Succinate 50 mg 10/06/20 09:00 10/07/20 08:35 Metoprolol Succinate Er 50 Mg Tab.Er.24h PO 50 mg DAILY JOSE DANIEL Administration Protocol Mirabegron 25 mg 10/06/20 09:00 10/07/20 08:34 Mirabegron 25 Mg Tab.Er.24h PO 25 mg DAILY JOSE DANIEL Administration Ondansetron HCl 4 mg 10/05/20 12:48 Ondansetron Hcl 4 Mg/2 Ml Vial IVPUSH Q8H PRN Nausea and Vomiting Pharmacy Consult 1 each 10/05/20 13:50 Consult Rx Perform Med Rec MISCELLANE ONCE PRN Consult order Prednisone 5 mg 10/06/20 09:00 10/07/20 08:34 Prednisone 5 Mg Tablet PO 5 mg DAILY JOSE DANIEL Administration Sodium Chloride 3 ml 10/05/20 16:00 10/07/20 08:33 0.9 % Sodium Chloride Flush 3 Ml Syringe IVFLUSH 3 ml QSHIFT JOSE DANIEL Administration Trazodone HCl 25 mg 10/05/20 21:00 10/06/20 21:42 Trazodone Hcl 25 Mg Halftab PO 25 mg BEDTIME JOSE DANIEL Administration Labs CBC & Chem 7: 10/07/20 08:08 10/07/20 08:08 Microbiology Microbiology Results: Microbiology 10/05/20 06:50 Blood - Venous Blood Culture - Preliminary No growth after 48 hours. 10/05/20 06:50 Blood - Venous Blood Culture - Preliminary No growth after 48 hours. Assessment and Plan (1) COVID-19: Status: Acute Assessment and Plan: 84 year old man admitted with viral sepsis secondary to Covid 19. No hypoxia or consolidations noted. 1.Viral sepsis due to covid 19. Covid-19 positive. fever, tachycardia, lactic acidosis seems to be imrpovng. Will hold off on steroids as patient has not been hypoxic. Id eval pendin 2.MARIELA. Likely from dehydration. ivf ,seems improving as wella s po intake 3.Encephalopathy. Likely from sepsis secondary to covid. 4.Transaminitis. Likely viral related from Covid and dehydration. IV fluids.will moniter lft's 5.Hypotension. Hold antihypertensives. Likely from dehydration.seems improving with hydration
[2020-10-07 16:00] VITALS: BP 145/59; PULSE 70; RESP 14; TEMP 37.1; O2SAT 92
[2020-10-07 16:27] LABS: Glucose, Whole Blood 255 mg/dL (60-115)
[2020-10-07 20:00] VITALS: BP 186/71; PULSE 96; RESP 17; O2SAT 99
[2020-10-07 21:21] LABS: Glucose, Whole Blood 177 mg/dL (60-115)
[2020-10-07] MEDS: Gabapentin 600 MG TABLET PO (21:21)
[2020-10-07] MEDS: traZODone HCL 25 MG HALFTAB PO (21:21)
[2020-10-07] MEDS: Insulin Glargine,Hum.rec.anlog 100 UNIT/ML 10 ML VIAL 25 UNIT SUBCUT (21:21)
[2020-10-08] VITALS (8 sets, daily range): BP systolic 141–193; BP diastolic 56–86; PULSE 66–87; RESP 13–18; TEMP 36.2–37.5; O2SAT 94–98
[2020-10-08] MEDS: 0.9 % Sodium Chloride Flush 3 ML SYRINGE IVFLUSH ×2 (00:07→08:51)
[2020-10-08 07:48] LABS: Glucose, Whole Blood 59 mg/dL (60-115)
[2020-10-08 07:51] LABS: Glucose, Whole Blood 75 mg/dL (60-115)
[2020-10-08] MEDS: Atorvastatin Calcium 80 MG TABLET PO (08:50)
[2020-10-08] MEDS: Metoprolol Succinate ER 50 MG TAB.ER.24H PO (08:50)
[2020-10-08] MEDS: Mirabegron 25 MG TAB.ER.24H PO (08:51)
[2020-10-08] MEDS: predniSONE 5 MG TABLET PO (08:51)
[2020-10-08] MEDS: Aspirin Enteric Coated 81 MG TABLET.DR PO (08:51)
[2020-10-08] MEDS: Famotidine 20 MG TABLET PO (08:51)
[2020-10-08] MEDS: amLODIPine Besylate 2.5 MG TABLET PO ×2 (08:53→12:21)
[2020-10-08 11:24] LABS: Glucose, Whole Blood 169 mg/dL (60-115)
--- NOTE | 2020-10-08 13:53 | PM.DS ---
DS: Providers Provider Date of Service: 10/19/20 Date of admission: 10/05/20 12:48 Primary care physician: Db Lei MD Consults: 10/05/20 18:38 Consult to Infectious Diseases Routine Consulting Provider: Trudi Guerrero Reason for consultation: cvoid infection Has provider been notified: No 10/05/20 18:39 Consult to Infectious Diseases Routine Consulting Provider: Trudi Guerrero Reason for consultation: covid, fever Has provider been notified: No DS: Diagnosis Discharge Diagnosis (1) COVID-19: Status: Acute DS: Medications Discharge Medications Home Medications: Home Medications Medication Instructions Recorded Confirmed albuterol sulfate [ProAir HFA] 2 puff INHALATION Q4H PRN 10/05/20 10/05/20 amlodipine 1 tab PO DAILY 10/05/20 10/05/20 aspirin 81 mg PO DAILY 10/05/20 10/05/20 atorvastatin 1 tab PO DAILY 10/05/20 10/05/20 dulaglutide [Trulicity] 0.75 mg SUBCUT MO@1000 10/05/20 10/05/20 famotidine 1 tab PO BID 10/05/20 10/05/20 furosemide 1 tab PO DAILY 10/05/20 10/05/20 gabapentin 1 tab PO BEDTIME 10/05/20 10/05/20 insulin degludec [Tresiba 38 unit SUBCUT BEDTIME 10/05/20 10/05/20 FlexTouch U-100] losartan 1 tab PO DAILY 10/05/20 10/05/20 metoprolol succinate 1 tab PO DAILY 10/05/20 10/05/20 mirabegron [Myrbetriq] 1 tab PO DAILY 10/05/20 10/05/20 prednisone 5 mg PO DAILY 10/05/20 10/05/20 trazodone 0.5 tab PO BEDTIME 10/05/20 10/05/20 DS: Summary Hospital Course Hospital Course: 84 year old uzbek speaking women presenting from home with fever and increased confusion. Covid positive, CXR negative for consolidation. She's very vague about why she was in the hospital. Her daughter, Kinsey Mcgee ([phone]) stated that last night the patient felt warm and she was unable to get out of bed. Her daughter checked her blood sugar and it was 375 and her temperature was 104.0. In the ED, WBC 18.1, creatinine 1.75, ast 34, alt 41, covid pcr positive. She was noted to be mildly hypotensive at 93/40 however did improve with IV fluids. She was also given a dose of Rocephin and Tylenol. She will be admitted with viral sepsis secondary to Covid. Hospital course: 1.Initially admitted for Viral sepsis due to covid 19. Covid-19 positive. fever, tachycardia, lactic acidosis seems to be imrpoving. In addition patient was initially had poor oral intake, nausea and diarrhea, acute kidney injury , found to have COVID positive: Subsequently patient was started on IV hydration and monitor closely with supportive care-patient condition improved significantly, tolerating diet, MARIELA improved. 2. Metabolic/toxic Encephalopathy. Likely from sepsis secondary to covid-seems improved. 3.Transaminitis. Likely viral related from Covid and dehydration. IV fluids. LFTs seems similar to before monitor LFTs outpatient with PCP and further management as per PCP. 4.Blood pressures are seems slightly suboptimal due to received fluid as well as was off her losartan due to MARIELA: Continue home medications and subsequently further management outpatient as per PCP. 5. DM white : Seems like she has probably diabetic noncompliance diet white: Will adjust Lantus to 10 units at night because her mostly morning sugars are in the 70-80 range, and continue the continue other diabetic medications. Time spent Assessment and plan coordination 50 minutes. Time Spent with Patient Time attestation: Total time spent providing and/or coordinating discharge services: Discharge coordination time: Greater than 30 minutes Physical Exam Vital Signs: Vital Signs: Last Vital Signs Temp 99.5 F 10/08/20 11:54 Pulse 87 10/08/20 12:21 Resp 13 10/08/20 11:54 BP 159/61 H 10/08/20 13:51 Pulse Ox 94 10/08/20 11:54 Body Mass Index 28.3 DS: Data Data Completed and Pending Labs on day of discharge: Laboratory Tests 10/05/20 10/05/20 10/05/20 06:50 06:50 06:50 WBC 18.1 H RBC 4.33 Hgb 12.2 Hct 35.8 L MCV 82.7 MCH 28.2 MCHC 34.1 RDW 13.5 Plt Count 163 MPV 11.6 Immature Gran % (Auto) 1.3 H Neut % (Auto) 84.8 H Lymph % (Auto) 6.6 L Powell % (Auto) 6.9 Eos % (Auto) 0.1 Baso % (Auto) 0.3 Lymph # (Auto) 1.2 Powell # (Auto) 1.3 H Eos # (Auto) 0.0 Baso # (Auto) 0.1 Abs Immat Gran (auto) 0.23 H Absolute Neuts (auto) 15.4 H Absolute Nucleated RBC 0.000 Nucleated RBC % (auto) 0.0 Smear Tech's Comments Hold Blue Top SEE NOTE Sodium Potassium Chloride Carbon Dioxide Anion Gap BUN Creatinine Estim Creat Clear Calc Estimated GFR POC Glucose Random Glucose Estimat Average Glucose Hemoglobin A1c % Lactic Acid 2.5 H* Lactic Acid Fup @ 2Hr Calcium Ferritin Total Bilirubin Direct Bilirubin AST ALT Alkaline Phosphatase Lactate Dehydrogenase Total Protein Albumin Procalcitonin Urine Color Urine Appearance Urine pH Ur Specific [place] Urine Protein Urine Glucose (UA) Urine Ketones Urine Blood Urine Nitrite Ur Leukocyte Esterase Urine RBC Urine WBC Ur Squamous Epith Cells Uric Acid Crystals Urine Bacteria Urine Yeast Urine Opiates Screen Ur Barbiturates Screen Ur Phencyclidine Scrn Ur Amphetamines Screen U Benzodiazepines Scrn Urine Cocaine Screen U Marijuana (THC) Screen Coronavirus (PCR) Influenza Type A (PCR) Influenza Type B (PCR) RSV RNA Qual (PCR) 10/05/20 10/05/20 10/05/20 06:50 06:53 07:08 WBC RBC Hgb Hct MCV MCH MCHC RDW Plt Count MPV Immature Gran % (Auto) Neut % (Auto) Lymph % (Auto) Powell % (Auto) Eos % (Auto) Baso % (Auto) Lymph # (Auto) [place] # (Auto) Eos # (Auto) Baso # (Auto) Abs Immat Gran (auto) Absolute Neuts (auto) Absolute Nucleated RBC Nucleated RBC % (auto) Smear Tech's Comments Hold Blue Top Sodium 135 Potassium 4.2 Chloride 96 Carbon Dioxide 28 Anion Gap 15 BUN 29 H Creatinine 1.75 H Estim Creat Clear Calc 20.1 Estimated GFR 28 POC Glucose 278 H Random Glucose 326 H Estimat Average Glucose Hemoglobin A1c % Lactic Acid Lactic Acid Fup @ 2Hr Calcium 9.3 Ferritin Total Bilirubin Direct Bilirubin AST ALT Alkaline Phosphatase Lactate Dehydrogenase Total Protein Albumin Procalcitonin Urine Color Urine Appearance Urine pH Ur Specific [place] Urine Protein Urine Glucose (UA) Urine Ketones Urine Blood Urine Nitrite Ur Leukocyte Esterase Urine RBC Urine WBC Ur Squamous Epith Cells Uric Acid Crystals Urine Bacteria Urine Yeast Urine Opiates Screen Ur Barbiturates Screen Ur Phencyclidine Scrn Ur Amphetamines Screen U Benzodiazepines Scrn Urine Cocaine Screen U Marijuana (THC) Screen Coronavirus (PCR) POSITIVE A Influenza Type A (PCR) NEGATIVE Influenza Type B (PCR) NEGATIVE RSV RNA Qual (PCR) NEGATIVE 10/05/20 10/05/20 10/05/20 07:40 07:40 09:36 WBC RBC Hgb Hct MCV MCH MCHC RDW Plt Count MPV Immature Gran % (Auto) Neut % (Auto) Lymph % (Auto) Powell % (Auto) Eos % (Auto) Baso % (Auto) Lymph # (Auto) Powell # (Auto) Eos # (Auto) Baso # (Auto) Abs Immat Gran (auto) Absolute Neuts (auto) Absolute Nucleated RBC Nucleated RBC % (auto) Smear Tech's Comments Hold Blue Top Sodium Potassium Chloride Carbon Dioxide Anion Gap BUN Creatinine Estim Creat Clear Calc Estimated GFR POC Glucose Random Glucose Estimat Average Glucose Hemoglobin A1c % Lactic Acid Lactic Acid Fup @ 2Hr 1.5 Calcium Ferritin Total Bilirubin Direct Bilirubin AST ALT Alkaline Phosphatase Lactate Dehydrogenase Total Protein Albumin Procalcitonin Urine Color STRAW Urine Appearance CLEAR Urine pH 6.0 Ur Specific [place] 1.015 Urine Protein 1+ H Urine Glucose (UA) >=1000 H Urine Ketones NEG Urine Blood 1+ H Urine Nitrite NEG Ur Leukocyte Esterase NEG Urine RBC 0-2 Urine WBC 1-4 Ur Squamous Epith Cells TRACE Uric Acid Crystals TRACE Urine Bacteria 3+ Urine Yeast TRACE Urine Opiates Screen Not Detected Ur Barbiturates Screen Not Detected Ur Phencyclidine Scrn Not Detected Ur Amphetamines Screen Not Detected U Benzodiazepines Scrn Not Detected Urine Cocaine Screen Not Detected U Marijuana (THC) Screen Not Detected Coronavirus (PCR) Influenza Type A (PCR) Influenza Type B (PCR) RSV RNA Qual (PCR) 10/05/20 10/05/20 10/05/20 12:03 14:14 14:14 WBC RBC Hgb Hct MCV MCH MCHC RDW Plt Count MPV Immature Gran % (Auto) Neut % (Auto) Lymph % (Auto) [place] % (Auto) Eos % (Auto) Baso % (Auto) Lymph # (Auto) [place] # (Auto) Eos # (Auto) Baso # (Auto) Abs Immat Gran (auto) Absolute Neuts (auto) Absolute Nucleated RBC Nucleated RBC % (auto) Smear Tech's Comments Hold Blue Top Sodium 137 Potassium 3.7 Chloride 105 Carbon Dioxide 25 Anion Gap 11 L BUN 29 H Creatinine 1.44 H Estim Creat Clear Calc 24.4 Estimated GFR 35 POC Glucose 196 H Random Glucose 186 H D Estimat Average Glucose Hemoglobin A1c % Lactic Acid Lactic Acid Fup @ 2Hr Calcium 7.5 L D Ferritin 94 Total Bilirubin Direct Bilirubin AST ALT Alkaline Phosphatase Lactate Dehydrogenase 199 Total Protein Albumin Procalcitonin 3.13 Urine Color Urine Appearance Urine pH Ur Specific [place] Urine Protein Urine Glucose (UA) Urine Ketones Urine Blood Urine Nitrite Ur Leukocyte Esterase Urine RBC Urine WBC Ur Squamous Epith Cells Uric Acid Crystals Urine Bacteria Urine Yeast Urine Opiates Screen Ur Barbiturates Screen Ur Phencyclidine Scrn Ur Amphetamines Screen U Benzodiazepines Scrn Urine Cocaine Screen U Marijuana (THC) Screen Coronavirus (PCR) Influenza Type A (PCR) Influenza Type B (PCR) RSV RNA Qual (PCR) 10/05/20 10/05/20 10/06/20 16:33 20:34 00:38 WBC RBC Hgb Hct MCV MCH MCHC RDW Plt Count MPV Immature Gran % (Auto) Neut % (Auto) Lymph % (Auto) [place] % (Auto) Eos % (Auto) Baso % (Auto) Lymph # (Auto) [place] # (Auto) Eos # (Auto) Baso # (Auto) Abs Immat Gran (auto) Absolute Neuts (auto) Absolute Nucleated RBC Nucleated RBC % (auto) Smear Tech's Comments Hold Blue Top Sodium Potassium Chloride Carbon Dioxide Anion Gap BUN Creatinine Estim Creat Clear Calc Estimated GFR POC Glucose 146 H 230 H 114 Random Glucose Estimat Average Glucose Hemoglobin A1c % Lactic Acid Lactic Acid Fup @ 2Hr Calcium Ferritin Total Bilirubin Direct Bilirubin AST ALT Alkaline Phosphatase Lactate Dehydrogenase Total Protein Albumin Procalcitonin Urine Color Urine Appearance Urine pH Ur Specific [place] Urine Protein Urine Glucose (UA) Urine Ketones Urine Blood Urine Nitrite Ur Leukocyte Esterase Urine RBC Urine WBC Ur Squamous Epith Cells Uric Acid Crystals Urine Bacteria Urine Yeast Urine Opiates Screen Ur Barbiturates Screen Ur Phencyclidine Scrn Ur Amphetamines Screen U Benzodiazepines Scrn Urine Cocaine Screen U Marijuana (THC) Screen Coronavirus (PCR) Influenza Type A (PCR) Influenza Type B (PCR) RSV RNA Qual (PCR) 10/06/20 10/06/20 10/06/20 06:41 06:41 07:30 WBC 9.2 RBC 3.56 L Hgb 10.3 L Hct 29.6 L MCV 83.1 MCH 28.9 MCHC 34.8 RDW 13.9 Plt Count 88 L D MPV Not Reportable Immature Gran % (Auto) 0.4 Neut % (Auto) 74.7 H Lymph % (Auto) 15.7 L [place] % (Auto) 7.9 Eos % (Auto) 1.0 Baso % (Auto) 0.3 Lymph # (Auto) 1.4 [place] # (Auto) 0.7 Eos # (Auto) 0.1 Baso # (Auto) 0.0 Abs Immat Gran (auto) 0.04 H Absolute Neuts (auto) 6.9 Absolute Nucleated RBC 0.000 Nucleated RBC % (auto) 0.0 Smear Tech's Comments VERIFIED Hold Blue Top Sodium 140 Potassium 3.5 Chloride 111 H Carbon Dioxide 21 L Anion Gap 12 BUN 25 H Creatinine 1.01 Estim Creat Clear Calc 34.8 Estimated GFR 52 POC Glucose 64 Random Glucose 62 D Estimat Average Glucose Hemoglobin A1c % Lactic Acid Lactic Acid Fup @ 2Hr Calcium 7.9 L Ferritin Total Bilirubin 0.4 Direct Bilirubin 0.3 AST 47 H ALT 41 H Alkaline Phosphatase 195 H Lactate Dehydrogenase Total Protein 5.5 L Albumin 2.9 L Procalcitonin Urine Color Urine Appearance Urine pH Ur Specific [place] Urine Protein Urine Glucose (UA) Urine Ketones Urine Blood Urine Nitrite Ur Leukocyte Esterase Urine RBC Urine WBC Ur Squamous Epith Cells Uric Acid Crystals Urine Bacteria Urine Yeast Urine Opiates Screen Ur Barbiturates Screen Ur Phencyclidine Scrn Ur Amphetamines Screen U Benzodiazepines Scrn Urine Cocaine Screen U Marijuana (THC) Screen Coronavirus (PCR) Influenza Type A (PCR) Influenza Type B (PCR) RSV RNA Qual (PCR) 10/06/20 10/06/20 10/06/20 12:24 17:20 21:19 WBC RBC Hgb Hct MCV MCH MCHC RDW Plt Count MPV Immature Gran % (Auto) Neut % (Auto) Lymph % (Auto) [place] % (Auto) Eos % (Auto) Baso % (Auto) Lymph # (Auto) [place] # (Auto) Eos # (Auto) Baso # (Auto) Abs Immat Gran (auto) Absolute Neuts (auto) Absolute Nucleated RBC Nucleated RBC % (auto) Smear Tech's Comments Hold Blue Top Sodium Potassium Chloride Carbon Dioxide Anion Gap BUN Creatinine Estim Creat Clear Calc Estimated GFR POC Glucose 160 H 227 H 196 H Random Glucose Estimat Average Glucose Hemoglobin A1c % Lactic Acid Lactic Acid Fup @ 2Hr Calcium Ferritin Total Bilirubin Direct Bilirubin AST ALT Alkaline Phosphatase Lactate Dehydrogenase Total Protein Albumin Procalcitonin Urine Color Urine Appearance Urine pH Ur Specific [place] Urine Protein Urine Glucose (UA) Urine Ketones Urine Blood Urine Nitrite Ur Leukocyte Esterase Urine RBC Urine WBC Ur Squamous Epith Cells Uric Acid Crystals Urine Bacteria Urine Yeast Urine Opiates Screen Ur Barbiturates Screen Ur Phencyclidine Scrn Ur Amphetamines Screen U Benzodiazepines Scrn Urine Cocaine Screen U Marijuana (THC) Screen Coronavirus (PCR) Influenza Type A (PCR) Influenza Type B (PCR) RSV RNA Qual (PCR) 10/07/20 10/07/20 10/07/20 07:44 07:45 08:03 WBC RBC Hgb Hct MCV MCH MCHC RDW Plt Count MPV Immature Gran % (Auto) Neut % (Auto) Lymph % (Auto) [place] % (Auto) Eos % (Auto) Baso % (Auto) Lymph # (Auto) [place] # (Auto) Eos # (Auto) Baso # (Auto) Abs Immat Gran (auto) Absolute Neuts (auto) Absolute Nucleated RBC Nucleated RBC % (auto) Smear Tech's Comments Hold Blue Top Sodium Potassium Chloride Carbon Dioxide Anion Gap BUN Creatinine Estim Creat Clear Calc Estimated GFR POC Glucose 55 L* 59 L* 72 Random Glucose Estimat Average Glucose Hemoglobin A1c % Lactic Acid Lactic Acid Fup @ 2Hr Calcium Ferritin Total Bilirubin Direct Bilirubin AST ALT Alkaline Phosphatase Lactate Dehydrogenase Total Protein Albumin Procalcitonin Urine Color Urine Appearance Urine pH Ur Specific [place] Urine Protein Urine Glucose (UA) Urine Ketones Urine Blood Urine Nitrite Ur Leukocyte Esterase Urine RBC Urine WBC Ur Squamous Epith Cells Uric Acid Crystals Urine Bacteria Urine Yeast Urine Opiates Screen Ur Barbiturates Screen Ur Phencyclidine Scrn Ur Amphetamines Screen U Benzodiazepines Scrn Urine Cocaine Screen U Marijuana (THC) Screen Coronavirus (PCR) Influenza Type A (PCR) Influenza Type B (PCR) RSV RNA Qual (PCR) 10/07/20 10/07/20 10/07/20 08:08 08:08 08:08 WBC RBC Hgb 10.6 L Hct 30.9 L MCV MCH MCHC RDW Plt Count MPV Immature Gran % (Auto) Neut % (Auto) Lymph % (Auto) [place] % (Auto) Eos % (Auto) Baso % (Auto) Lymph # (Auto) [place] # (Auto) Eos # (Auto) Baso # (Auto) Abs Immat Gran (auto) Absolute Neuts (auto) Absolute Nucleated RBC Nucleated RBC % (auto) Smear Tech's Comments Hold Blue Top Sodium 145 Potassium 3.8 Chloride 109 H Carbon Dioxide 26 Anion Gap 14 BUN 17 H Creatinine 0.97 Estim Creat Clear Calc 36.2 Estimated GFR 55 POC Glucose Random Glucose 82 Estimat Average Glucose 235 Hemoglobin A1c % 9.8 Lactic Acid Lactic Acid Fup @ 2Hr Calcium 8.2 L Ferritin Total Bilirubin 0.4 Direct Bilirubin 0.3 AST 50 H ALT 42 H Alkaline Phosphatase 214 H Lactate Dehydrogenase Total Protein 5.9 L Albumin 3.1 L Procalcitonin Urine Color Urine Appearance Urine pH Ur Specific [place] Urine Protein Urine Glucose (UA) Urine Ketones Urine Blood Urine Nitrite Ur Leukocyte Esterase Urine RBC Urine WBC Ur Squamous Epith Cells Uric Acid Crystals Urine Bacteria Urine Yeast Urine Opiates Screen Ur Barbiturates Screen Ur Phencyclidine Scrn Ur Amphetamines Screen U Benzodiazepines Scrn Urine Cocaine Screen U Marijuana (THC) Screen Coronavirus (PCR) Influenza Type A (PCR) Influenza Type B (PCR) RSV RNA Qual (PCR) 10/07/20 10/07/20 10/07/20 11:22 16:15 21:08 WBC RBC Hgb Hct MCV MCH MCHC RDW Plt Count MPV Immature Gran % (Auto) Neut % (Auto) Lymph % (Auto) [place] % (Auto) Eos % (Auto) Baso % (Auto) Lymph # (Auto) [place] # (Auto) Eos # (Auto) Baso # (Auto) Abs Immat Gran (auto) Absolute Neuts (auto) Absolute Nucleated RBC Nucleated RBC % (auto) Smear Tech's Comments Hold Blue Top Sodium Potassium Chloride Carbon Dioxide Anion Gap BUN Creatinine Estim Creat Clear Calc Estimated GFR POC Glucose 165 H 255 H 177 H Random Glucose Estimat Average Glucose Hemoglobin A1c % Lactic Acid Lactic Acid Fup @ 2Hr Calcium Ferritin Total Bilirubin Direct Bilirubin AST ALT Alkaline Phosphatase Lactate Dehydrogenase Total Protein Albumin Procalcitonin Urine Color Urine Appearance Urine pH Ur Specific [place] Urine Protein Urine Glucose (UA) Urine Ketones Urine Blood Urine Nitrite Ur Leukocyte Esterase Urine RBC Urine WBC Ur Squamous Epith Cells Uric Acid Crystals Urine Bacteria Urine Yeast Urine Opiates Screen Ur Barbiturates Screen Ur Phencyclidine Scrn Ur Amphetamines Screen U Benzodiazepines Scrn Urine Cocaine Screen U Marijuana (THC) Screen Coronavirus (PCR) Influenza Type A (PCR) Influenza Type B (PCR) RSV RNA Qual (PCR) 10/08/20 10/08/20 07:33 11:13 WBC RBC Hgb Hct MCV MCH MCHC RDW Plt Count MPV Immature Gran % (Auto) Neut % (Auto) Lymph % (Auto) [place] % (Auto) Eos % (Auto) Baso % (Auto) Lymph # (Auto) [place] # (Auto) Eos # (Auto) Baso # (Auto) Abs Immat Gran (auto) Absolute Neuts (auto) Absolute Nucleated RBC Nucleated RBC % (auto) Smear Tech's Comments Hold Blue Top Sodium Potassium Chloride Carbon Dioxide Anion Gap BUN Creatinine Estim Creat Clear Calc Estimated GFR POC Glucose 75 169 H Random Glucose Estimat Average Glucose Hemoglobin A1c % Lactic Acid Lactic Acid Fup @ 2Hr Calcium Ferritin Total Bilirubin Direct Bilirubin AST ALT Alkaline Phosphatase Lactate Dehydrogenase Total Protein Albumin Procalcitonin Urine Color Urine Appearance Urine pH Ur Specific [place] Urine Protein Urine Glucose (UA) Urine Ketones Urine Blood Urine Nitrite Ur Leukocyte Esterase Urine RBC Urine WBC Ur Squamous Epith Cells Uric Acid Crystals Urine Bacteria Urine Yeast Urine Opiates Screen Ur Barbiturates Screen Ur Phencyclidine Scrn Ur Amphetamines Screen U Benzodiazepines Scrn Urine Cocaine Screen U Marijuana (THC) Screen Coronavirus (PCR) Influenza Type A (PCR) Influenza Type B (PCR) RSV RNA Qual (PCR) Preliminary micro results at discharge 10/05/20 06:50 Blood Culture - Preliminary Blood - Venous No growth after 48 hours. 10/05/20 06:50 Blood Culture - Preliminary Blood - Venous No growth after 48 hours. Discharge Plan Discharge Patient Disposition: Home, Self-Care Referrals: Db Lei MD [Primary Care Provider] - Discharge Medications: Continued atorvastatin 80 mg tablet 1 tab PO DAILY RF: 0 gabapentin 600 mg tablet 1 tab PO BEDTIME RF: 0 trazodone 50 mg tablet 0.5 tab PO BEDTIME RF: 0 metoprolol succinate 50 mg tablet extended release 24 hr 1 tab PO DAILY RF: 0 prednisone 5 mg Tablet 5 mg PO DAILY RF: 0 amlodipine 5 mg tablet 1 tab PO DAILY RF: 0 famotidine 20 mg tablet 1 tab PO BID RF: 0 furosemide 20 mg tablet 1 tab PO DAILY RF: 0 losartan 100 mg tablet 1 tab PO DAILY RF: 0 Myrbetriq 25 mg tablet extended release 24 hr 1 tab PO DAILY RF: 0 Trulicity 0.75 mg/0.5 mL pen injector 0.75 mg subcut MO@1000 RF: 0 aspirin 81 mg Tablet,Delayed Release (Dr/Ec) 81 mg PO DAILY RF: 0 albuterol sulfate [ProAir HFA] 90 mcg/actuation Hfa Aerosol Inhaler 2 puff INHALATION Q4H PRN (Reason: Respiratory Distress) RF: 0 Changed Tresiba FlexTouch U-100 100 unit/mL (3 mL) insulin pen 10 unit subcut BEDTIME Qty: 0 RF: 0 Discharge Orders: Discharge Order (Routine); Ordered 10/08/20 Ordered By: Isabel Hall Diet: advance to usual diet, diabetic diet, low fat, low cholesterol and low salt diet Activity on Discharge: As tolerated Stand Alone Forms: Patient Portal Discharge page Other Ambulatory Orders: Basic Metabolic Panel Fasting (Routine) Timeframe: 1 Week Facility: [facility] - Location: Laboratory Ordered By: Isabel Hall Complete Blood Count no Diff (Routine) Timeframe: 1 Week Facility: [facility] - Location: Laboratory Ordered By: Isabel Hall Liver Panel (Routine) Timeframe: 1 Week Facility: [facility] - Location: Laboratory Ordered By: Isabel Hall Visit Report Forms: Patient Portal Discharge page Care Plan Goals: Patient came with the poor oral intake, nausea and diarrhea, acute kidney injury , found to have COVID positive: Subsequently patient was started on IV hydration and monitor closely with supportive care-patient condition improved significantly, tolerating diet, MARIELA improved. Blood pressures are seems slightly suboptimal due to received fluid as well as was off her losartan due to MARIELA: Continue home medications and subsequently further management outpatient as per PCP. Health Concerns: As above. Plan of Treatment: As above. Discharge Date/Time: 10/08/20 15:11
--- NOTE | 2020-10-08 14:33 | MHC.CM.PN ---
Pt is medically cleared for d/c to home without services Call placed to pt's dtr Kinsey who will arrive at 2:45 to transport pt to home.
== END 2020-10-08 15:11 | disposition home or self-care (01) | DRG 871 ==
LOC: HO.ED 06:54 → HO.EDOVER 13:06 → HO.ICU 10-06 17:27
PROVIDERS: Nurse Practitioner Acute Care; Admitting Provider Internal Medicine; Emergency Provider Emergency Medicine Emergency Medical Services; PCP Internal Medicine; Visit Provider Internal Medicine
DX: A41.89 Other specified sepsis (principal); U07.1 COVID-19; G92 Toxic encephalopathy; N17.9 Acute kidney failure, unspecified; E11.9 Type 2 diabetes mellitus without complications; I95.9 Hypotension, unspecified; E86.0 Dehydration; Z91.11 Patient's noncompliance with dietary regimen; R74.01 Elevation of levels of liver transaminase levels; Z79.52 Long term (current) use of systemic steroids; Z79.82 Long term (current) use of aspirin; Z79.899 Other long term (current) drug therapy
CPT/HCPCS: 0241U; 36415; 71045; 71250; 80048; 80076; 80307; 81001; 82728; 82947; 83036; 83605; 83615; 84145; 85014; 85018; 85025; 87040; 93005; 96361; 96374; 97162; 99285; 99291; J0696